=== PATIENT | female | born 1940 | race Caucasian/White ===

== ENCOUNTER → 2017-05-17 | Outpatient (CLI) | payer OTHER ==
[~2017-05-17] MED LIST: ACTONEL150 MG PO; ALBUTEROL17 GM INH; BALANCED B-1001 TA2; BENZONATATE PO; CALCIUM PO; CELEBREX PO; CENTRUM SILVER PO; CITRACAL + D CA1 TA1; DELTASONE20 MG PO; FOLIC ACID1 MG PO; FOSAMAX; FUROSEMIDE40 MG PO; IBUPROFEN; KLOR-CON PO; LEVAQUIN PO; LORTAB 10-5001 EACH PO; METHOTREXATE2.5 MG PO; NORCO1 TAB 10/3 PO; PLAQUENIL200 MG PO; POTASSIUM CHLO10 MEQ DOB; PREDNISONE PO; TRAMADOL HCL50 M2 PO; VITAMIN D400 UNI2; ZITHROMAX PO
== END | disposition home or self-care (01) ==
LOC: CLAB 14:13
DX: I50.40 Unspecified combined systolic (congestive) and diastolic (congestive) heart failure (principal)
CPT/HCPCS: 36415; 83735; 83880